=== PATIENT | female | born 1940 | race Caucasian/White ===

== ENCOUNTER 2016-10-04 19:44 | Emergency (ER) | payer OTHER | END 2016-10-04 20:41 | disposition home or self-care (01) | LOC: ER 19:44 | DX: M96.89 Other intraoperative and postprocedural complications and disorders of the musculoskeletal system (principal); L03.114 Cellulitis of left upper limb; Z98.890 Other specified postprocedural states; Z88.2 Allergy status to sulfonamides | CPT/HCPCS: 96372; 99282-25; 99283 ==